=== PATIENT | female | born 2000 | race Caucasian/White ===

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

== ENCOUNTER 2021-02-03 11:42 | Emergency (ER) | payer OTHER, SELFPAY ==
--- NOTE | ~2021-02-03 | XR_ITS ---
EXAMINATION: XR chest 2V EXAM DATE: 02/03/2021 12:33 INDICATION: Left rib pain. TECHNIQUE: Frontal and lateral projections of the chest obtained and reviewed. Comparison is made to prior examination from 05/31/2019. FINDINGS: The lungs are clear. There are no pleural effusions. The cardiomediastinal silhouette is within normal limits. There is no pneumothorax suspected. The bones and soft tissues are unremarkab le. IMPRESSION: No acute cardiopulmonary findings. Reviewed, dictated and finalized at location A.
[2021-02-03 12:02] VITALS: BP 120/74; PULSE 91; RESP 16; TEMP 36.4; O2SAT 100
--- NOTE | 2021-02-03 12:21 | ED.GENADULT ---
HPI - General Adult General Chief complaint: Unspecified Stated complaint: Rib Cage Pain Time Seen by Provider: 02/03/21 12:22 History of Present Illness HPI narrative: Hortensia Rahman is a 20-year old female who comes to [facility] with complaints of left-sided rib pain that she woke up with. 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 Patient states that she has not been ill recently; denies fever chest pain difficulty breathing shortness of breath Related Data Home Medications Medication Instructions Recorded Confirmed norethindrone-e.estradiol-iron [Lo tablet 04/03/19 Loestrin Fe] Allergies Allergy/AdvReac Type Severity Reaction Status Date / Time Penicillins Allergy Mild HIVES Verified 02/03/21 12:45 Review of Systems Review of Systems: CONSTITUTIONAL: Denies fever, chills, sweats. EYES: Denies visual changes, redness, discharge. ENT: Denies rhinorrhea, congestion, sore throat, otalgia. CARDIOVASCULAR: Denies chest pain, palpitations, edema. RESPIRATORY: Denies dyspnea, wheezing, [id number] rib pain GASTROINTESTINAL: Denies abdominal pain, nausea, vomiting, diarrhea. GENITOURINARY: Denies dysuria, hematuria, abnormal discharge SKIN: Denies rash or itching. NEUROLOGIC: Denies numbness, or focal weakness. PSYCHIATRIC: Denies anxiety or depression. PMFSH Past Medical History Medical History History of strep sore throat Surgical History Surgical History S/P ureteral reimplantation Family History Family History Other Hypertension Social History Social History (Updated 02/03/21 @ 12:28 by Марина Moya CNP) Smoking status: Never smoker Alcohol intake: current Comments At time of signature, I agree with nursing past medical, surgical, social and family history. There is no relevant family history pertinent to the presenting complaint. Exam Narrative: GENERAL: This is a well-nourished, well-developed patient, in mild distress. HEAD: normocephalic, atraumatic. EYES: PERRL. Sclera clear/white. Vision is grossly intact. EARS: External ears normal,. Hearing grossly intact. NOSE: External nose normal without nasal discharge, nares without redness, no rhinorrhea. THROAT: Mucous membranes moist, NECK: Neck supple, non-tender CARDIOVASCULAR: Regular rate and rhythm without murmurs, gallops, or rubs. RESPIRATORY: Clear to auscultation. Breath sounds equal bilaterally. No wheezes, rales, or rhonchi. Complainin. Left lower rib pain on palpation when patient turns to the to the right causes discomfort or when she lifts her arm overhead there is discomfort GASTROINTESTINAL: Abdomen soft, non-tender, SKIN: warm, intact with no suspicious lesions or rash, good texture and turgor. NEURO: awake, alert, and oriented to person, place and time. There were no obvious focal neurologic abnormalities. Steady gait EXTREMITIES: Normal range of motion. BACK: Nontender without deformity Course Course Emergency Course: Patient comes to [facility] with complaints of left-sided chest discomfort identified as rib pain She has pain with movement takes deep breath when she stretches Chest x-ray-no acute cardiopulmonary findings the lungs are clear with no pleural effusion the cardiomediastinal silhouette is within normal limits Discharged on high-dose ibuprofen and muscle relaxant Vital Signs Vital signs: Vital Signs Temperature 97.6 F 02/03/21 12:02 Pulse Rate 91 02/03/21 12:02 Respiratory Rate 16 02/03/21 12:02 Blood Pressure 120/74 02/03/21 12:02 Pulse Oximetry 100 02/03/21 12:02 Temperature 97.6 F 02/03/21 12:02 Pulse Rate 91 02/03/21 12:02 Respiratory Rate 16 02/03/21 12:02 Blood Pressure
== END 2021-02-03 13:07 | disposition home or self-care (01) ==
PROVIDERS: Emergency Provider Nurse Practitioner; PCP Nurse Practitioner Family
DX: M94.0 Chondrocostal junction syndrome [Tietze] (principal)
CPT/HCPCS: 71046; 99213; G0463

== ENCOUNTER 2021-08-29 11:33 | Emergency (ER) | payer OTHER, SELFPAY ==
[2021-08-29 11:40] VITALS: BP 132/79; PULSE 106; RESP 18; TEMP 36.4; O2SAT 100
--- NOTE | 2021-08-29 12:01 | ED.EAR ---
HPI - Ear Problem General Chief complaint: Ear Stated complaint: Ear Pain Time Seen by Provider: 08/29/21 12:02 Source: patient Mode of arrival: ambulatory Limitations: no limitations History of Present Illness HPI Narrative: Hortensia Rahman is a 20-year-old female with no PMH comes to [facility] with complaints of right ear pain and general congestion and mild cough. She has a mild case of laryngitis is here primarily for her right ear pain that has been bothering her for the last 2 to 3 days Related Data Home Medications Medication Instructions Recorded Confirmed norethindrone-e.estradiol-iron [Lo tablet 04/03/19 Loestrin Fe] Allergies Allergy/AdvReac Type Severity Reaction Status Date / Time Penicillins Allergy Mild Anaphylaxis Verified 08/29/21 12:13 Review of Systems Review of Systems: CONSTITUTIONAL: Denies fever, chills, sweats. EYES: Denies visual changes, redness, discharge. ENT: Denies rhinorrhea, congestion, sore throat, right otalgia. CARDIOVASCULAR: Denies chest pain, palpitations, edema. RESPIRATORY: Denies dyspnea, wheezing, mild cough GASTROINTESTINAL: Denies abdominal pain, nausea, vomiting, diarrhea. GENITOURINARY: Denies dysuria, hematuria, abnormal discharge SKIN: Denies rash or itching. NEUROLOGIC: Denies numbness, or focal weakness. PSYCHIATRIC: Denies anxiety or depression. PMFSH Past Medical History Medical History History of strep sore throat Surgical History Surgical History S/P ureteral reimplantation Family History Family History Other Hypertension Social History Social History Smoking status: Never smoker Alcohol intake: current Comments At time of signature, I agree with nursing past medical, surgical, social and family history. There is no relevant family history pertinent to the presenting complaint. Exam Narrative: GENERAL: This is a well-nourished, well-developed patient, in mild distress. HEAD: normocephalic, atraumatic. EYES: Sclera clear/white. Vision is grossly intact. EARS: External ears normal, auditory canals clear on left , erythema on right and without drainage, TMs normal without perforation. Hearing grossly intact. NOSE: External nose normal without nasal discharge, nares without redness, mild rhinorrhea. THROAT: Mucous membranes moist, posterior pharynx mild erythema, mild loss of voice NECK: Neck supple, non-tender CARDIOVASCULAR: Heart rate 100, normal rhythm without murmurs, gallops, or rubs. RESPIRATORY: Clear to auscultation. Breath sounds equal bilaterally. No wheezes, rales, or rhonchi. GASTROINTESTINAL: Abdomen soft, SKIN: warm, intact with no suspicious lesions or rash, good texture and turgor. NEURO: awake, alert, and oriented to person, place and time. There were no obvious focal neurologic abnormalities. Steady gait EXTREMITIES: Normal range of motion. BACK: Nontender without deformity Course Course Emergency Course: Patient is here for right ear pain, has mild cough and loss of voice but is here just for ear pain Polymyxin eardrops started and recommended to start taking Zyrtec daily Level of Care: Express Care Visit Vital Signs Vital signs: Vital Signs Temperature 97.6 F 08/29/21 11:40 Pulse Rate 106 H 08/29/21 11:40 Respiratory Rate 18 08/29/21 11:40 Blood Pressure 132/79 08/29/21 11:40 Pulse Oximetry 100 08/29/21 11:40 Temperature 97.6 F 08/29/21 11:40 Pulse Rate 106 H 08/29/21 11:40 Respiratory Rate 18 08/29/21 11:40 Blood Pressure 132/79 08/29/21 11:40 Pulse Oximetry 100 08/29/21 11:40 Medical Decision Making Differential Diagnosis Differential Diagnosis: Otitis versus eustachian tube dysfunction versus otitis externa Vital Signs Vital Signs: Vital Sig
== END 2021-08-29 12:24 | disposition home or self-care (01) ==
PROVIDERS: Emergency Provider Nurse Practitioner; PCP Nurse Practitioner Family
DX: H66.001 Acute suppurative otitis media without spontaneous rupture of ear drum, right ear (principal)
CPT/HCPCS: 99213; G0463

== ENCOUNTER 2024-04-20 14:05 | Emergency (ER) | payer OTHER, SELFPAY ==
[2024-04-20 14:22] VITALS: BP 113/70; PULSE 95; RESP 16; TEMP 37; O2SAT 100
--- NOTE | 2024-04-20 15:34 | ED_ITS ---
HPI - Headache General Chief Complaint: Headache Stated Complaint: headache Time Seen by Provider: 04/20/24 15:34 Source: patient, RN notes reviewed and old records reviewed Mode of arrival: ambulatory Limitations: no limitations History of Present Illness HPI Narrative: 23-year-old female presents to the [facility] with a headache posterior head that started Wednesday, 2 days. States that she has been taking Excedrin with some relief. Denies any new nausea or vomiting. Reports when she does have pain decreased appetite. No meningeal signs. Denies any injury. No blurry vision. Neurologically intact Related Data Home Medications ?Medication ?Instructions ?Recorded ?Confirmed ?Last Taken ?Type norethindrone 1 mg-ethinyl tablet 04/03/19 02/03/21 History estradiol 10 mcg (24)-iron 10 mcg(2) tablet (Lo Loestrin Fe) Allergies Allergy/AdvReac Type Severity Reaction Status Date / Time Penicillins Allergy Mild Anaphylaxis Verified 04/20/24 14:11 Review of Systems Review of Systems: All systems reviewed & are unremarkable except as noted in HPI and below Constitutional: Constitutional: Reports as per HPI and Reports headache(s) ENT: Reports system reviewed and no additional complaints, except as documented Cardiovascular: Cardiovascular: Reports no additional cardiovascular co mplaints, Denies chest pain and Denies dyspnea Respiratory: Respiratory: Reports no additional respiratory complaints, Denies chest congestion, Denies cough and Denies dyspnea Musculoskeletal: Musculoskeletal: Reports no additional musculoskeletal complaints Integumentary/Breasts: Skin/Breast: Reports system reviewed and no additional complaints, except as docu PMFSH Past Medical History Medical History History of strep sore throat Surgical History Surgical History S/P ureteral reimplantation Family History Family History Other Hypertension Social History Social History Smoking status: Never smoker Alcohol intake: current Living arrangements: with family Occupation/Education: student Comments At the time of my signature, I reviewed and agree with the nursing past medical, surgical, social, and family history. There is no relevant family history pertinent to the patient complaint. Exam Const: General: cooperative, healthy appearing, comfortable, no acute distress, well developed, alert and well nourished Nutritional Appearance: well nourished Orientation/consciousness: patient oriented x3 Limitations: no limitations HENMT: Head: normal to inspection Ears: hearing grossly normal bilaterally, external ears normal, TM's normal bilaterally, EAC's normal, mastoids normal and no periauricular adenopathy Face/Nose/Sinus: normal facial exam and face symmetric Face and sinus: normal facial exam and face symmetric Mouth: Yes Normal oral and palatal mucosa present, Yes lip normal, Yes tongue normal and Yes moist mucous membranes Throat: posterior oropharynx normal, uvula midline and no uvular edema Eyes: General: appearance normal, both eyes and all related structures Neck: Neck: normal visual inspection, full ROM, no lymphadenopathy and no meningeal signs Chest: Chest palpation & inspection: normal inspection of the chest Resp: Effort & Inspection: normal respiratory effort and able to speak in complete sentences Auscultation: clear to auscultation bilaterally, no crackles, no rales, no rhonchi and no wheezes Cardio: Rate: regular rate Skin: General skin exam: normal color and no rashes or lesions noted Neuro: General: patient oriented x3, gait normal, moves all extremities, no meningeal signs and no focal motor deficits Cognition (Neuro): normal cognition Speech: normal speech Gait exam (Neuro): Normal gait present Extrem: General: normal to inspection, full ROM, capillary refill normal and normal gait Psych: Appearance: grossly normal and well kempt Mental Status: mental status grossly normal Speech and movement: Normal speech and movement present and Clear speech present Affect: normal affect Attitude: cooperative Course Course Level of Care: Express Care Visit Vital Signs Vital signs: Vital Signs Temperature 98.6 F 04/20/24 14:22 Pulse Rate 95 04/20/24 14:22 Respiratory Rate 16 04/20/24 14:22 Blood Pressure 113/70 04/20/24 14:22 Pulse Oximetry 100 04/20/24 14:22 Oxygen Delivery Room Air 04/20/24 14:22 Temperature 98.6 F 04/20/24 14:22 Pulse Rate 95 04/20/24 14:22 Respiratory Rate 16 04/20/24 14:22 Blood Pressure 113/70 04/20/24 14:22 Pulse Oximetry 100 04/20/24 14:22 Oxygen Delivery Room Air 04/20/24 14:22 Reviewed MDM - Headache MDM Narrative Medical decision making narrative: Patient sitting comfortably in exam room. Nontoxic, vitals stable. Patient presents with 2 day history of a headache that starts at the back of her head and radiates into her forehead. No neurologic deficits. No blurry vision or change in vision. No nausea or vomiting. No meningeal signs Patient appropriate for outpatient treatment and follow-up Discharge instructions reviewed with patient, as well as provided in writing per nursing staff. The instructions also include specific and strict return/GO TO THE ER as well as f/u information. All questions have been answered, and the patient deny any further questions with discharge and discharge plan. Some parts of this dictation were generated by voice recognition software and may contain typographical and/or grammatical inaccuracies. Differential Diagnosis Differential diagnosis: Likely migraine, tension headache and headache Critical Care Time Critical Care Time Critical Care Time: No Discharge Plan Discharge Clinical Impression: Headache Qualifiers: Headache type: unspecified Headache chronicity pattern: acute headache Patient Disposition: Home, Self-Care Condition: Stable Instructions: Antibiotic Form, Acute Headache (DC) Additional Instructions: Take Tylenol, ibuprofen or Excedrin. Take on a regular basis you can alternate Tylenol and Motrin every 4 hours. Taking Benadryl can also help with symptoms Rest cool dark room with absolutely no screen time which is especially true for cell phones and computers. If your symptoms get worse such as but not limited to severe neck pain, blurry vision, vomiting please go directly to the nearest emergency room for further evaluation Patient Language: Yi Prescriptions: No Action Lo Loestrin Fe 1 mg-10 mcg (24)/10 mcg (2) tablet Follow-up/Referrals: Jethro Escobar MD [Physician] - 1 Week (express care follow up) PHYSICIAN,OUTSOLE ROUNDER [Primary Care Provider] - Stand Alone Forms: Work/School Release IP Time of Disposition: 15:44
== END 2024-04-20 15:50 | disposition home or self-care (01) ==
PROVIDERS: Emergency Provider Nurse Practitioner
DX: R51.9 Headache, unspecified (principal)
CPT/HCPCS: 99213; G0463

== ENCOUNTER 2025-01-08 18:00 | Emergency (ER) | payer OTHER, SELFPAY ==
--- NOTE | 2025-01-08 18:03 | ED_ITS ---
HPI - Ear Problem General Chief complaint: Ear Stated complaint: right ear pain Time Seen by Provider: 01/08/25 18:15 Source: patient Mode of arrival: ambulatory Limitations: no limitations History of Present Illness HPI Narrative: Hortensia is a 24-year-old female patient presenting to the clinic today with complaints of right ear pain x3 days. She reports she has been taking Tylenol for her symptoms. Feels as though her ears clogged and is having sharp pain at times. Denies any recent swimming. Does report some nasal congestion. No fevers, chills, body aches. Related Data Home Medications ?Medication ?Instructions ?Recorded ?Confirmed ?Last Taken ?Type norethindrone 1 mg-ethinyl tablet 04/03/19 02/03/21 H istory estradiol 10 mcg (24)-iron 10 mcg(2) tablet (Lo Loestrin Fe) Allergies Allergy/AdvReac Type Severity Reaction Status Date / Time Penicillins Allergy Mild Anaphylaxis Verified 01/08/25 18:32 Review of Systems Review of Systems: Pertinent positives per HPI. Patient denies any fever, chills, rash, headache, visual changes, dizziness, cough, shortness of breath, chest pain, palpitations, nausea, vomiting, diarrhea, constipation, abdominal pain, or any urinary issues. [facility] Past Medical History Medical History History of strep sore throat Surgical History Surgical History S/P ureteral reimplantation Family History Family History Other Hypertension Social History Social History Smoking status: Never smoker Alcohol intake: current Living arrangements: with family Occupation/Education: student Comments At the time of my signature, I reviewed and agree with the nursing past medical, surgical, social, and family history. There is no relevant family history pertinent to the patient complaint. Exam Narrative: General: Well-developed, well nourished, in no apparent distress Head: Normocephalic, atraumatic Eyes: Pupils equally round and reactive to light bilaterally, EOM intact, sclera and conjunctive clear, no discharge, lids normal Ears: Left TMs intact and clear, right TM intact, mild bulging, fluid noted behind the TM, ear canals clear, no drainage, grossly hearing normal. Nose: Nares patent, no discharge, no inflammation, no sinus tenderness. Mouth: Oral pharynx without lesions or masses, good dentition, MMM. Neck: Supple, trachea midline, no enlargement of anterior or posterior cervical nodes, no thyroid masses or goiter palpable. Cardio: Regular rate and rhythm, s1 and s2 normal, no murmur appreciated. Resp: Clear to auscultation bilaterally, no rhonchi, rales, wheezing or rubs Course Course Emergency Course: Portions of this record may have been created with voice recognition software. Level of Care: Express Care Visit Vital Signs Vital signs: Vital Signs Temperature 36.9 C 01/08/25 18:09 Pulse Rate 70 01/08/25 18:09 Respiratory Rate 20 01/08/25 18:09 Blood Pressure 112/52 L 01/08/25 18:09 Pulse Oximetry 100 01/08/25 18:09 Oxygen Delivery Room Air 01/08/25 18:09 Temperature 36.9 C 01/08/25 18:09 Pulse Rate 70 01/08/25 18:09 Respiratory Rate 20 01/08/25 18:09 Blood Pressure 112/52 L 01/08/25 18:09 Pulse Oximetry 100 01/08/25 18:09 Oxygen Delivery Room Air 01/08/25 18:09 Vital signs reviewed Medical Decision Making MDM Narrative Medical decision making narrative: At the time of visit patient is resting comfortably on the exam table. Patient appears to be nontoxic. Complaints of right ear pain x3 days. She reports she has been taking Tylenol for her symptoms. Feels as though her ears clogged and is having sharp pain at times. Denies any recent swimming. Does report some nasal congestion. No fevers, chills, body aches. On exam patient has tenderness to palpation over the right eustachian tube with fluid noted behind the TM with some mild bulging. Plan: I suspect patient has serous otitis/right eustachian tube dysfunction. Prescription for and was sent to the pharmacy. Supportive measures were discussed with the patient and they voiced understanding discharge instructions and agrees to treatment plan. Return precautions reviewed Differential Diagnosis Differential Diagnosis: Otitis media, otitis sternum eustachian tube dysfunction, cerumen impaction, upper respiratory infection, serous otitis Vital Signs Vital Signs: Vital Signs Temperature 36.9 C 01/08/25 18:09 Pulse Rate 70 01/08/25 18:09 Respiratory Rate 20 01/08/25 18:09 Blood Pressure 112/52 L 01/08/25 18:09 Pulse Oximetry 100 01/08/25 18:09 Oxygen Delivery Room Air 01/08/25 18:09 Temperature 36.9 C 01/08/25 18:09 Pulse Rate 70 01/08/25 18:09 Respiratory Rate 20 01/08/25 18:09 Blood Pressure 112/52 L 01/08/25 18:09 Pulse Oximetry 100 01/08/25 18:09 Oxygen Delivery Room Air 01/08/25 18:09 Discharge Plan Discharge Clinical Impression: Acute dysfunction of right eustachian tube Acute serous otitis media Qualifiers: Laterality: right Recurrence: non-recurrent Qualified Code(s): H65.01 - Acute serous otitis media, right ear Patient Disposition: Home Condition: Stable Instructions: Antibiotic Form, Earache (ED), Fluid In The Ear (Serous Otitis Media) (ED) Additional Instructions: Take any prescribed medications only as directed-prednisone Tylenol/motrin as needed for pain May use heating pad to alleviate pain If you get recurrent ear infections it may be warranted to follow up with ENT. Follow up with your PCP in 3-5 days if symptoms persist. Patient Language: [place] Irish Prescriptions: New prednisone 20 mg tablet 40 mg PO DAILY 5 Days Qty: 10 0RF No Action Lo Loestrin Fe 1 mg-10 mcg (24)/10 mcg (2) tablet Follow-up/Referrals: PHYSICIAN,PATIENT CASE MANAGER [Primary Care Provider, Internal Medicine] Time of Disposition: 18:22 Quality NIHSS Nursing Documentation ED NIHSS nursing documentation: reviewed/agree
[2025-01-08 18:09] VITALS: BP 112/52; PULSE 70; RESP 20; TEMP 36.9; O2SAT 100
== END 2025-01-08 18:35 | disposition home or self-care (01) ==
PROVIDERS: Emergency Provider Nurse Practitioner Family
DX: H69.91 Unspecified Eustachian tube disorder, right ear (principal); H65.01 Acute serous otitis media, right ear
CPT/HCPCS: 99213; G0463